=== PATIENT | female | born 1995 ===

== ENCOUNTER → 2017-11-13 | Outpatient (CLI) | payer OTHER, SELFPAY ==
[~2017-11-13] MED LIST: AMOCLA875 PO; Depo-Prove150 MG/11 IM; HYDR1TAB94 PO; IBUP800 PO; Norco 5-325 Ta1 EACH PO
== END ==
LOC: LAB SHORT 15:50 → LAB 15:50
DX: R30.0 Dysuria (principal)
CPT/HCPCS: 87086

== ENCOUNTER → 2018-12-13 | Outpatient (CLI) | payer SELFPAY | LOC: LAB SHORT 08:45 → LAB 08:45 | PROVIDERS: Student in an Organized Health Care Education/Training Program | DX: Z01.419 Encounter for gynecological examination (general) (routine) without abnormal findings (principal) | CPT/HCPCS: G0145 ==

== ENCOUNTER → 2022-11-03 | Outpatient (CLI) | payer OTHER ==
[2022-11-05 14:09] LABS: HPV 16 Negative (Negative); HPV 18 Negative (Negative); HPV OTHER HR TYPES Negative (Negative)
== END | disposition home or self-care (01) ==
LOC: LAB 14:45 → LAB SHORT 14:45
PROVIDERS: Family Medicine
DX: Z01.419 Encounter for gynecological examination (general) (routine) without abnormal findings (principal)
CPT/HCPCS: 87624; G0145

== ENCOUNTER → 2023-04-16 | Outpatient (CLI) | payer OTHER | LOC: LAB 09:37 → LAB SHORT 09:37 | DX: O09.892 Supervision of other high risk pregnancies, second trimester (principal) | CPT/HCPCS: 87081; 87150 ==

== ENCOUNTER 2023-05-17 01:41 | Inpatient (IN) | payer OTHER ==
[~2023-05-17] VITALS: Ht 162.6 cm; Wt 71.8 kg
[2023-05-17] VITALS (21 sets, daily range): BP systolic 104–132; BP diastolic 52–80
[2023-05-17] MEDS ORDERED: FentaNYL Citrate 50 MCG/ML 2 ML Injection IV PRN (02:10)
[2023-05-17] MEDS ORDERED: Acetaminophen 500 MG Tab PO PRN ×2 (02:10→15:55)
[2023-05-17] MEDS ORDERED: Ondansetron HCl 2 MG / ML 2ML Vial IV PRN (02:10)
[2023-05-17] MEDS ORDERED: Bupivacaine 0.5% HCl 5 MG/ML 30MLVIAL XX SCH (02:15)
[2023-05-17] MEDS ORDERED: FentaNYL 2mcg/ml-Bup 0.1% Epd 250 ML EPI PRN (02:15)
[2023-05-17] MEDS ORDERED: Misoprostol 200 MCG Tab PR SCH (02:15)
[2023-05-17] MEDS ORDERED: Oxytocin 10 Unit / ML Vial IM SCH (02:15)
[2023-05-17] MEDS ORDERED: Castor Oil 59.146 ML BTL TOP SCH (02:15)
[2023-05-17] MEDS ORDERED: Lidocaine HCl 1% 30 ML SDV XX SCH (02:15)
[2023-05-17] MEDS ORDERED: Bupivacaine HCl 2.5 MG/ML 10ML P/F Injection XX SCH (02:15)
[2023-05-17] MEDS ORDERED: Lactated Ringer's 1,000 ML IV PRN (02:15)
[2023-05-17] MEDS ORDERED: ePHEDrine Sulfate 50 MG/ML 1ML Injection XX PRN (02:15)
[2023-05-17] MEDS ORDERED: Methylergonovine Maleate 0.2MG / ML 1ML Amp IM SCH (02:15)
[2023-05-17] MEDS ORDERED: Calcium Carbonate 500 MG Tab Chew PO PRN (02:15)
[2023-05-17] MEDS ORDERED: LR Oxytocin 20 Units 1,000 ML IV SCH ×2 (02:15→16:05)
[2023-05-17] MEDS ORDERED: Lactated Ringer's 1,000 ML IV SCH ×3 (02:15→16:05)
[2023-05-17] MEDS ORDERED: PRENATAL TABLE1 EAC2 PO (02:37)
[2023-05-17] MEDS ORDERED: OMEP20ER PO (02:37)
[2023-05-17 02:38] LABS: BASOPHILS ABSOLUTE AUTO 0.03 K/mm3 (0.00-0.23); BASOPHILS PERCENT AUTO 0 % (0-2); EOSINOPHILS ABSOLUTE AUTO 0.03 K/mm3 (0.00-0.68); EOSINOPHILS PERCENT AUTO 0 % (0-6); Hematocrit 35.3 % (33.0-51.0); Hemoglobin 11.2 g/dL (11.5-16.0); IMMATURE GRAN ABSOLUTE AUTO 0.05 K/mm3 (0.00-0.10); IMMATURE GRAN PERCENT AUTO 1 % (0-1); LYMPHOCYTES PERCENT AUTO 10 % (21-46); MONOCYTES ABSOLUTE AUTO 0.88 K/mm3 (0.16-1.47); MONOCYTES PERCENT AUTO 8 % (4-13); Mean Corpuscular HGB 25.1 pg (26.0-34.0); Mean Corpuscular HGB Conc 31.7 g/dL (31.5-36.5); Mean Corpuscular Volume 79 fL (80-100); Mean Platelet Volume 11.4 fL (9.1-12.4); NEUTROPHILS ABSOLUTE AUTO 8.58 K/mm3 (1.96-9.15); NEUTROPHILS PERCENT AUTO 81 % (41-73); Platelet Count 164 K/mm3 (150-400); RDW Coefficient Variation 14.5 % (11.7-14.2); RDW Standard Deviation 41.4 fL (35.1-46.3); Red Blood Cell Count 4.46 M/mm3 (3.80-5.20); White Blood Cell Count 10.57 K/mm3 (4.00-11.30)
[2023-05-17] MEDS ORDERED: Lactated Ringer's 1,000 ML IV ONE (09:54)
[2023-05-17] MEDS ORDERED: FentaNYL Citrate 50 MCG/ML 2 ML Injection ONE (10:12)
[2023-05-17] MEDS ORDERED: Misoprostol 200 MCG Tab PR PRN (15:55)
[2023-05-17] MEDS ORDERED: FLU VACC QS2023-24(6MOS UP)/PF 60 MCG/0.5 ML SYRINGE IM SCH (16:00)
[2023-05-17] MEDS ORDERED: Carboprost Tromethamine 250 MCG/ML 1ML Amp IM PRN (16:00)
[2023-05-17] MEDS ORDERED: Ketorolac Tromethamine 30mg Vial IV PRN (16:00)
[2023-05-17] MEDS ORDERED: Methylergonovine Maleate 0.2MG / ML 1ML Amp IM PRN (16:00)
[2023-05-17] MEDS ORDERED: Rho(D) Immune Globulin 300 MCG / SYR IM SCH (16:00)
[2023-05-17] MEDS ORDERED: Ketorolac Tromethamine 30mg Vial IV ONE (16:00)
[2023-05-17] MEDS ORDERED: Benzocaine Topical Anesthetic Spray 60GM TOP PRN (16:00)
[2023-05-17] MEDS ORDERED: Docusate Sodium 100 MG Cap PO PRN (16:00)
[2023-05-17] MEDS ORDERED: Ibuprofen 400 MG Tab PO PRN (16:05)
[2023-05-17] MEDS ORDERED: Measles/Mumps/Rubella Vaccine 0.5 ML Vial SC SCH (16:05)
[2023-05-17] MEDS ORDERED: Witch Hazel/Glycerin PADS TOP PRN (16:05)
[2023-05-17] MEDS ORDERED: Omeprazole 20 MG CapCR PO SCH (16:30)
[2023-05-18 01:48] VITALS: BP 113/55
[2023-05-18 08:44] VITALS: BP 116/81
[2023-05-18] MEDS ORDERED: Prenatal Vit/FE Fumarate/FA 1 Tab PO SCH (09:00)
[2023-05-18] MEDS ORDERED: IBUP800 PO (11:46)
[2023-05-18 13:24] VITALS: BP 114/79
[2023-05-18 15:51] VITALS: BP 124/77
--- NOTE | 2023-05-18 15:54 | NUR ---
PT REPORTS FEELING LIGHT HEADED AND DIZZY, AND STATES SYMPTOMS WORSEN WHEN STANDING AND WALKING AROUND. VSS. DR FONSECA NOTIFIED AND CBC WAS ORDERED.
[2023-05-18 16:42] LABS: BASOPHILS ABSOLUTE AUTO 0.04 K/mm3 (0.00-0.23); BASOPHILS PERCENT AUTO 0 % (0-2); EOSINOPHILS PERCENT AUTO 1 % (0-6); Hematocrit 32.9 % (33.0-51.0); Hemoglobin 10.4 g/dL (11.5-16.0); IMMATURE GRAN ABSOLUTE AUTO 0.05 K/mm3 (0.00-0.10); IMMATURE GRAN PERCENT AUTO 1 % (0-1); LYMPHOCYTES ABSOLUTE AUTO 1.36 K/mm3 (0.84-5.20); LYMPHOCYTES PERCENT AUTO 13 % (21-46); MONOCYTES ABSOLUTE AUTO 0.75 K/mm3 (0.16-1.47); MONOCYTES PERCENT AUTO 7 % (4-13); Mean Corpuscular HGB 25.9 pg (26.0-34.0); Mean Corpuscular HGB Conc 31.6 g/dL (31.5-36.5); Mean Corpuscular Volume 82 fL (80-100); Mean Platelet Volume 11.6 fL (9.1-12.4); NEUTROPHILS ABSOLUTE AUTO 7.82 K/mm3 (1.96-9.15); NEUTROPHILS PERCENT AUTO 77 % (41-73); Platelet Count 168 K/mm3 (150-400); RDW Coefficient Variation 14.6 % (11.7-14.2); RDW Standard Deviation 43.3 fL (35.1-46.3); Red Blood Cell Count 4.01 M/mm3 (3.80-5.20); White Blood Cell Count 10.12 K/mm3 (4.00-11.30)
--- NOTE | 2023-05-18 17:00 | NUR ---
LABS WNL, DR FONSECA NOTIFIED OF VALUES AND APPROVED PT TO DISCHARGE. PT REPORTS SYMPTOMS ARE IMPROVING AND THINKS THEY WERE RELATED TO DRINKING COFFEE.
--- NOTE | 2023-05-18 18:25 | NUR ---
BANDS MATCHED WITH MOTHER AND FATHER. HUGS AND BANDS REMOVED. ALL DISCHARGE INSTRUCTIONS DISCUSSED. BOTH PARENTS VERBALIZED UNDERSTANDING. ALL QUESTIONS ANSWERED. VSS. PT AMBULATED OUT OF ROOM WITHOUT COMPLICATION.
== END 2023-05-18 17:40 | disposition home or self-care (01) | DRG 807 ==
LOC: OBS 01:41 → BC 01:44 → OBS 02:09 → BC 02:11
PROVIDERS: Obstetrics & Gynecology; ADMIT Obstetrics & Gynecology
PROC: 10E0XZZ Delivery of Products of Conception, External Approach (ICD-10-PCS; principal; 2023-05-17)
PROC: 10907ZC Drainage of Amniotic Fluid, Therapeutic from Products of Conception, Via Natural or Artificial Opening (ICD-10-PCS; 2023-05-17)
PROC: 4A1HXCZ Monitoring of Products of Conception, Cardiac Rate, External Approach (ICD-10-PCS; 2023-05-17)
DX: O48.0 Post-term pregnancy (principal); Z37.0 Single live birth; Z3A.41 41 weeks gestation of pregnancy
CPT/HCPCS: 36415; 51702; 59025; 85025; 86850; 86900; 86901; A9270; J1885; J2405; J3010; J7120